=== PATIENT | male | born 1985 | race Two or more races ===

== ENCOUNTER 2024-09-04 20:50 | Emergency (ER) | payer SELFPAY ==
[~2024-09-04] VITALS: Ht 167.6 cm; Wt 107.2 kg
[2024-09-04 21:10] VITALS: BP 151/103; PULSE 79; RESP 18; TEMP 98.7; O2SAT 98
== END 2024-09-04 23:48 | disposition left against medical advice (07) ==
LOC: ER 20:50
DX: K08.89 Other specified disorders of teeth and supporting structures (principal); Z53.21 Procedure and treatment not carried out due to patient leaving prior to being seen by health care provider